=== PATIENT | female | born 1970 | race Caucasian/White ===

== ENCOUNTER 2019-02-26 05:14 | Emergency (ER) | payer BC, OTHER ==
[~2019-02-26] VITALS: Ht 162.6 cm; Wt 65.8 kg
[~2019-02-26 05:14] MED LIST: FEXO1TAB31 PO; HYDR1TAB10 PO
[2019-02-26] MEDS ORDERED: diphenhydrAMINE 50 MG/ML VIAL IVP ONE (06:00)
[2019-02-26] MEDS ORDERED: methylPREDNISolone SOD SUCC PF 125 MG/2 ML VIAL. IV ONE (06:00)
[2019-02-26] MEDS ORDERED: FAMOTIDINE 20 MG/2 ML VIAL IVP ONE (06:00)
--- NOTE | 2019-02-26 06:07 | PHYS DOC ---
Past Medical History Past Medical History: Other Additional Past Medical Histor: GRAVES DISEASE (BANG BARROSO MD) Past Surgical History: Appendectomy, Tonsillectomy (BANG BARROSO MD) Alcohol Use: Occasionally Drug Use: None (BANG BARROSO MD) Adult General Chief Complaint Chief Complaint: ALLERGIC REACTION HPI HPI 48-year-old female presents to the emergency department with complaints of allergic reaction. Patient was diagnosed 2 weeks ago with Graves' disease, she has been on methimazole without concern. She states this morning she used latex gloves and has noticed irritation to her skin progressively worsening over the day. Into the morning. She has hives appreciated on her torso, abdomen, arms, hands swelling appreciated to her lips. She denies any shortness of breath however does state some tingling around her lips. She denies any chest pain, shortness of breath, nausea, vomiting, fever. She states she's been using Benadryl at home relief. (BANG BARROSO MD) Review of Systems Review of Systems Constitutional: Denies fever or chills [] Eyes: Denies change in visual acuity, redness, or eye pain [] HENT: Denies nasal congestion or sore throat [] Respiratory: Denies cough or shortness of breath [] Cardiovascular: No additional information not addressed in HPI [] GI: Denies abdominal pain, nausea, vomiting, bloody stools or diarrhea [] Musculoskeletal: Denies back pain or joint pain [] Integument: Hives appreciated all of her patient's body, erythema, itching, swelling of lips. Neurologic: Denies headache, focal weakness or sensory changes [] All other systems were reviewed and found to be within normal limits, except as documented in this note. (BANG BARROSO MD) Current Medications Current Medications Current Medications Medications (Trade) Dose Ordered Sig/Dwain Start Time Stop Time Status Last Admin Dose Admin Diphenhydramine HCl (Benadryl) 25 mg 1X ONCE 02/26/19 06:00 02/26/19 06:01 DC 02/26/19 05:59 25 MG Epinephrine HCl (Adrenalin) 0.3 mg 1X ONCE 02/26/19 06:15 02/26/19 06:16 DC 02/26/19 06:14 0.3 MG Famotidine (Pepcid Vial) 20 mg 1X ONCE 02/26/19 06:00 02/26/19 06:01 DC 02/26/19 05:59 20 MG Methylprednisolone Sodium Succinate (SOLU-Medrol 125MG VIAL) 125 mg 1X ONCE 02/26/19 06:00 02/26/19 06:01 DC 02/26/19 05:59 125 MG (MARI HERNANDEZ MD) Allergies Allergies Allergies Coded Allergies Type Severity Reaction Last Updated Verified Penicillins Allergy Intermediate RASH 07/13/14 Yes Sulfa (Sulfonamide Antibiotics) Allergy Intermediate Swelling 07/13/14 Yes acetaminophen Allergy Intermediate Nausea and Vomiting 07/13/14 Yes propoxyphene Allergy Intermediate Nausea and Vomiting 07/13/14 Yes (MARI HERNANDEZ MD) Physical Exam Physical Exam Constitutional: Well developed, well nourished, no acute distress, non-toxic appearance. [] HENT: Normocephalic, atraumatic, bilateral external ears normal, oropharynx moist, no oral exudates, nose normal. [] Eyes: PERRLA, EOMI, conjunctiva normal, no discharge. [] Neck: Normal range of motion, no tenderness, supple, no stridor. [] Cardiovascular:Heart rate regular rhythm, no murmur [] Lungs & Thorax: Bilateral breath sounds clear to auscultation [] Abdomen: Bowel sounds normal, soft, no tenderness, no masses, no pulsatile masses. [] Skin: Hives appreciated to the back, abdomen, arms, hands, swelling of upper lip Extremities: No tenderness, no cyanosis, no clubbing, ROM intact, no edema. [] Neurologic: Alert and oriented X 3, no focal deficits noted. [] Psychologic: Affect normal, judgement normal, mood normal. [] (BANG BARROSO MD) Current Patient Data Vital Signs Vital Signs Date Time Temp Pulse Resp B/P (MAP) Pulse Ox O2 Delivery O2 Flow Rate FiO2 02/26/19 06:12 88 18 137/63 (87) 100 Room Air 02/26/19 05:28 97.9 97.9 (MARI HERNANDEZ MD) EKG EKG [] (BANG BARROSO MD) Radiology/Procedures Radiology/Procedures [] (BANG BRAROSO MD) Course & Med Decision Making Course & Med Decision Making Pertinent Labs and Imaging studies reviewed. (See chart for details) []48-year-old female presents to the emergency department with complaints of allergic reaction. Patient was diagnosed 2 weeks ago with Graves' disease, she has been on methimazole without concern. She states this morning she used latex gloves and has noticed irritation to her skin progressively worsening over the day. Into the morning. She has hives appreciated on her torso, abdomen, arms, hands swelling appreciated to her lips. She denies any shortness of breath however does state some tingling around her lips. She denies any chest pain, shortness of breath, nausea, vomiting, fever. She states she's been using Elver adryl at home relief. Patient provided with epinephrine 0.3ml (1:1000) IM, Solu-Medrol 125 mg, Benadryl 50 mg, Pepcid 20 mg. Overall symptoms have improved. Will need observation prior to dc home. Discussed with DR. Hernandez - he will assume care of the patient (BANG BARROSO MD) Course & Med Decision Making 7:45 AM: The patient's condition remains stable. Her airway remained stable. I discussed diagnosis with the patient, the need for close follow-up. At this point I do not see a clear indication for an epinephrine auto injector. Importance of close PCP follow-up for further evaluation was discussed. (MARI HERNANDEZ MD) Dragon Disclaimer Dragon Disclaimer This electronic medical record was generated, in whole or in part, using a voice recognition dictation system. (BANG BARROSO MD) Departure Departure Impression: Primary Impression: Allergic reaction Disposition: 01 HOME, SELF-CARE Condition: STABLE Referrals: CHRIS BELLO MD (PCP) Patient Instructions: Allergies, Generic Additional Instructions: Take Benadryl 25-50 mg every 6 hours for the next 3 days. Use caution as this may cause sedation. Additionally, take Pepcid AC 10 mg twice daily for the next 3 days. This medicine is available [id number]. Use the prescribed steroids as instructed. Return to medical care for any new, or worsening symptoms, the development of shortness of breath, new rash, dizziness lightheadedness, fevers, or any other new, or concerning symptoms. Scripts Prednisone (PREDNISONE) 20 Mg Tablet 40 MG PO DAILY for 5 Days, #10 TAB Prov: MARI HERNANDEZ MD 02/26/19 BANG BARROSO MD Feb 26, 2019 06:07 MARI HERNANDEZ MD Feb 26, 2019 07:49
[2019-02-26] MEDS ORDERED: EPINEPHrine 1 MG/ML VIAL IM ONE (06:15)
[2019-02-26 07:44] VITALS: BP 122/73
[2019-02-26] MEDS ORDERED: PRED20TA PO (07:49)
[2019-02-26] MEDS ORDERED: EPIPEN 2-P0.3 MG/0.3 IJ (21:36)
[2019-02-27] MEDS ORDERED: HYDR25TA PO (15:17)
== END 2019-02-26 08:00 | disposition home or self-care (01) ==
LOC: ER 05:14
DX: T78.40XA Allergy, unspecified, initial encounter (principal); Z88.0 Allergy status to penicillin; Z88.2 Allergy status to sulfonamides; Z88.6 Allergy status to analgesic agent; Z88.8 Allergy status to other drugs, medicaments and biological substances
CPT/HCPCS: 96372; 96374; 96375; 99284; J0171; J1200; J2930; J3490

== ENCOUNTER 2019-02-26 19:49 | Emergency (ER) | payer BC ==
[~2019-02-26] VITALS: Ht 162.6 cm; Wt 65.8 kg
[~2019-02-26 19:49] MED LIST changes: +PRED20TA PO
--- NOTE | 2019-02-26 20:06 | PHYS DOC ---
Past Medical History Past Medical History: Other Additional Past Medical Histor: GRAVES DISEASE Past Surgical History: Appendectomy, Tonsillectomy Alcohol Use: Occasionally Drug Use: None Adult General Chief Complaint Chief Complaint: ALLERGIC REACTION HPI HPI 48-year-old female presents to the emergency department with complaints of tingling in her lips, swelling. Patient was seen by me this morning with concern for latex allergy. She was given Solu-Medrol, Benadryl, Pepcid, epinephrine 0.3. Patient was discharged after observation with steroids and continue Benadryl. No EpiPen provided. Patient denies any shortness of breath, swelling of her tongue or mucous membranes however feels that her lip is swollen. She has no wheeze on exam, she is not hypotensive. Review of Systems Review of Systems Constitutional: Denies fever or chills [] Eyes: Denies change in visual acuity, redness, or eye pain [] HENT: Denies nasal congestion or sore throat [] Respiratory: Denies cough or shortness of breath [] Cardiovascular: No additional information not addressed in HPI [] GI: Denies abdominal pain, nausea, vomiting, bloody stools or diarrhea [] Musculoskeletal: Denies back pain or joint pain [] Integument: swelling appreciated to upper lip/redness appreciated Neurologic: Denies headache, focal weakness or sensory changes [] All other systems were reviewed and found to be within normal limits, except as documented in this note. Current Medications Current Medications Current Medications Medications (Trade) Dose Ordered Sig/Dwain Start Time Stop Time Status Last Admin Dose Admin Diphenhydramine HCl (Benadryl) 25 mg 1X ONCE 02/26/19 20:15 02/26/19 20:16 DC 02/26/19 20:18 25 MG Famotidine (Pepcid Vial) 20 mg 1X ONCE 02/26/19 20:15 02/26/19 20:16 DC 02/26/19 20:18 20 MG Methylprednisolone Sodium Succinate (SOLU-Medrol 125MG VIAL) 125 mg 1X ONCE 02/26/19 20:15 02/26/19 20:16 DC 02/26/19 20:18 125 MG Allergies Allergies Allergies Coded Allergies Type Severity Reaction Last Updated Verified Penicillins Allergy Intermediate RASH 07/13/14 Yes Sulfa (Sulfonamide Antibiotics) Allergy Intermediate Swelling 07/13/14 Yes acetaminophen Allergy Intermediate Nausea and Vomiting 07/13/14 Yes propoxyphene Allergy Intermediate Nausea and Vomiting 07/13/14 Yes Physical Exam Physical Exam Constitutional: Well developed, well nourished, no acute distress, non-toxic appearance. [] HENT: Normocephalic, atraumatic, bilateral external ears normal, oropharynx moist, no oral exudates, nose normal. [] Eyes: PERRLA, EOMI, conjunctiva normal, no discharge. [] Neck: no stridor, no swelling Cardiovascular:Heart rate regular rhythm, no murmur [] Lungs & Thorax: Bilateral breath sounds clear to auscultation [] Abdomen: Bowel sounds normal, soft, no tenderness, no masses, no pulsatile masses. [] Skin: Warm, dry, no erythema, no rash, hives from earlier today have since resolved Extremities: No tenderness, no cyanosis, no clubbing, ROM intact, no edema. [] Neurologic: Alert and oriented X 3, no focal deficits noted. [] Psychologic: Affect normal, judgement normal, mood normal. [] Current Patient Data Vital Signs Vital Signs Date Time Temp Pulse Resp B/P (MAP) Pulse Ox O2 Delivery O2 Flow Rate FiO2 02/26/19 19:53 97.7 92 20 147/88 (107) 97 Room Air 97.7 EKG EKG [] Radiology/Procedures Radiology/Procedures [] Course & Med Decision Making Course & Med Decision Making Pertinent Labs and Imaging studies reviewed. (See chart for details) []48-year-old female presents to the emergency department with complaints of tingling in her lips, swelling. Patient was seen by me this morning with concern for latex allergy. She was given Solu-Medrol, Benadryl, Pepcid, epinephrine 0.3. Patient was discharged after observation with steroids and continue Benadryl. No EpiPen provided. Patient denies any shortness of breath, swelling of her tongue or mucous membranes however feels that her lip is swollen. She has no wheeze on exam, she is not hypotensive. Patient given Benadryl, Pepcid, Solu-Medrol with improvement. She states the tingling is gone, edema has resolved. We'll plan for EpiPen upon discharge. Cont inue Benadryl and Pepcid as well as prednisone prescription provided today. Return precautions discussed with patient, she is understanding. Dragon Disclaimer Dragon Disclaimer This electronic medical record was generated, in whole or in part, using a voice recognition dictation system. Departure Departure Impression: Primary Impression: Anaphylactic reaction Disposition: HOME, SELF-CARE Condition: STABLE Referrals: CHRIS BELLO MD (PCP) Patient Instructions: Anaphylactic Reaction, [id number] Additional Instructions: Continue Benadryl, pepcid and steroids as prescribed Epi-pen rx upon discharge Return to the ER with worsening swelling/edema/erythema. Scripts Epinephrine (EPIPEN 2-LUCY) 0.3 Mg/0.3 Ml Auto.injct 0.3 MG IJ ONCE, #1 SYR Prov: BANG BARROSO MD 02/26/19 Problem Qualifiers Primary Impression: Anaphylactic reaction Encounter type: subsequent encounter Qualified Codes: T78.2XXD - Anaphylactic shock, unspecified, subsequent encounter BANG BARROSO MD Feb 26, 2019 20:05
[2019-02-26] MEDS: FAMOTIDINE 20 MG/2 ML VIAL IVP ONE (20:17)
[2019-02-26] MEDS: methylPREDNISolone SOD SUCC PF 125 MG/2 ML VIAL. IV ONE (20:18)
[2019-02-26] MEDS: diphenhydrAMINE 50 MG/ML VIAL IVP ONE (20:18)
[2019-02-26 21:30] VITALS: BP 120/83
[2019-02-26] MEDS ORDERED: EPIPEN 2-P0.3 MG/0.3 IJ (21:36)
[2019-02-27] MEDS ORDERED: HYDR25TA PO (15:17)
== END 2019-02-26 21:45 | disposition home or self-care (01) ==
LOC: ER 19:49
DX: T78.2XXA Anaphylactic shock, unspecified, initial encounter (principal); Z90.89 Acquired absence of other organs; Z88.0 Allergy status to penicillin; Z88.2 Allergy status to sulfonamides; Z88.6 Allergy status to analgesic agent; Z88.8 Allergy status to other drugs, medicaments and biological substances
CPT/HCPCS: 96374; 96375; 99284; J1200; J2930; J3490

== ENCOUNTER 2019-02-27 14:14 | Emergency (ER) | payer BC ==
[~2019-02-27] VITALS: Ht 162.6 cm; Wt 65.8 kg
[~2019-02-27 14:14] MED LIST changes: +EPIPEN 2-P0.3 MG/0.3 IJ
[2019-02-27 14:37] VITALS: BP 137/78
[2019-02-27] MEDS ORDERED: HYDR25TA PO (15:17)
--- NOTE | 2019-02-27 15:17 | PHYS DOC ---
Past Medical History Past Medical History: Other Additional Past Medical Histor: GRAVES DISEASE Past Surgical History: Appendectomy, Tonsillectomy Alcohol Use: Occasionally Drug Use: None Adult General Chief Complaint Chief Complaint: ALLERGIC REACTION HPI HPI Patient is a 48 year old female who presents with complaining of rash and facial edema. Patient had facial edema and rash and was seen in this emergency room in 2 other location and treated for allergic reaction and currently taking Pepcid, Benadryl and prednisone. Patient states she developed a pruritic rash on bilateral arm and leg without shortness of breath, increasing lip swelling, throat edema, fever and chills, dizziness, chest pain. Review of Systems Review of Systems Constitutional: Denies fever or chills [] Eyes: Denies change in visual acuity, redness, or eye pain [] HENT: Denies nasal congestion or sore throat [] Respiratory: Denies cough or shortness of breath [] Cardiovascular: No additional information not addressed in HPI [] GI: Denies abdominal pain, nausea, vomiting, bloody stools or diarrhea [] : Denies dysuria or hematuria [] Musculoskeletal: Denies back pain or joint pain [] Integument: Reports rash Neurologic: Denies headache, focal weakness or sensory changes [] Endocrine: Denies polyuria or polydipsia [] All other systems were reviewed and found to be within normal limits, except as documented in this note. Allergies Allergies Allergies Coded Allergies Type Severity Reaction Last Updated Verified Penicillins Allergy Intermediate RASH 07/13/14 Yes Sulfa (Sulfonamide Antibiotics) Allergy Intermediate Swelling 07/13/14 Yes acetaminophen Allergy Intermediate Nausea and Vomiting 07/13/14 Yes propoxyphene Allergy Intermediate Nausea and Vomiting 07/13/14 Yes Physical Exam Physical Exam Constitutional: Well developed, well nourished, no acute distress, non-toxic appearance. [] HENT: Normocephalic, atraumatic, bilateral external ears normal, oropharynx moist, no oral exudates, nose normal. [] Eyes: PERRLA, EOMI, conjunctiva normal, no discharge. [] Neck: Normal range of motion, no tenderness, supple, no stridor. [] Cardiovascular:Heart rate regular rhythm, no murmur [] Lungs & Thorax: Bilateral breath sounds clear to auscultation [] Skin: Warm, dry, area of papular rash of bilateral thigh and cubital area Back: No tenderness, no CVA tenderness. [] Extremities: No tenderness, no cyanosis, no clubbing, ROM intact, no edema. [] Neurologic: Alert and oriented X 3, normal motor function, normal sensory function, no focal deficits noted. [] Psychologic: Affect normal, judgement normal, mood normal. [] Current Patient Data Vital Signs Vital Signs Date Time Temp Pulse Resp B/P (MAP) Pulse Ox O2 Delivery O2 Flow Rate FiO2 02/27/19 14:37 98.2 107 18 137/78 (97) 98 Room Air 98.2 EKG EKG [] Radiology/Procedures Radiology/Procedures [] Course & Med Decision Making Course & Med Decision Making Evaluation of patient in ER showed 48-year-old male patient presented to ER for details time because of allergic reaction. Patient had unremarkable physical exam except for rash without shortness of breath or throat edema. I offered patient hospitalization because of frequent visits regarding transportation wanted to follow with her primary care physician and continue her home medication. Patient was advised to stop the medicine and prescription for hydroxyzine was given. I've spoken with the patient and/or caregivers. I've explained the patient's condition, diagnosis and treatment plan based on information available to me at this time. I've answered the patient's and/or caregivers questions and addressed any concerns. The patient and/or caregivers have a good understanding the patient's diagnosis, condition and treatment plan as can be expected at this point. Vital signs have been stabilized. The patient's condition is stable for discharge from the emergency department. The patient will pursue further outpatient evaluation with her primary care provider or other designated consulting physician as outlined in the discharge instructions. Patient and/or caregivers are agreeable to this plan of care and follow-up instructions have been explained in detail. The patient and/or caregivers have received these instructions in written format and expressed understanding of these discharge instructions. The patient and her caregivers are aware that if any significant change in condition or worsening of symptoms should prompt him to immediately return to this of the closest emergency department. If an emergent department is not readily available I would encourage him to call 911. Paty Disclaimer Paty Disclaimer This electronic medical record was generated, in whole or in part, using a voice recognition dictation system. Departure Departure Impression: Primary Impression: Allergic reaction Disposition: HOME, SELF-CARE (at 1516) Condition: STABLE Referrals: CHRIS BELLO MD (PCP) Patient Instructions: Rash Additional Instructions: Drink plenty of liquids Follow-up with your primary care physician in 3-5 days Return to ER if not getting better Continue current medication except for Benadryl Scripts Hydroxyzine Hcl (HYDROXYZINE HCL) 25 Mg Tablet 1 TAB PO TID PRN for itching, #30 TAB Prov: GLEN ZAZUETA MD 02/27/19 Problem Qualifiers Primary Impression: Allergic reaction Encounter type: initial encounter Qualified Codes: T78.40XA - Allergy, unspecified, initial encounter GLEN ZAZUETA MD Feb 27, 2019 15:17
== END 2019-02-27 15:28 | disposition home or self-care (01) ==
LOC: ER 14:14
DX: T78.40XA Allergy, unspecified, initial encounter (principal); Z90.89 Acquired absence of other organs; Z88.0 Allergy status to penicillin; Z88.2 Allergy status to sulfonamides; Z88.6 Allergy status to analgesic agent; Z88.8 Allergy status to other drugs, medicaments and biological substances
CPT/HCPCS: 99283